=== PATIENT | female | born 1970 | race Caucasian/White ===

== ENCOUNTER 2018-06-11 20:48 | Emergency (ER) | payer OTHER ==
[~2018-06-11] VITALS: Ht 160 cm; Wt 63.5 kg
[~2018-06-11 20:48] MED LIST: ALBUTEROL17 G1 IH; ANUSOL-HC25 MG RC; ANUSOL-HC30 G2 RC; BUSPAR PO; CARAFATE1 G PO; CATAFLAM50 MG PO; CIPRO500 MG PO; MEDROLPACK PO; NASONEX17 GM NS; NEURONTIN300 MG PO; PANADOL EXTRA500 MG; PEPCID40 MG PO; PROSOM PO; PULMICORT1 MG/2 ML; SINGULAIR10 MG PO; SYMBICORT 16010.2 GM IH; SYNTHROID; SYNTHROID75 MCG PO; TUSSIONEX PENNKI5 ML PO; VALISONE15 GM TP; ZANTAC300 MG PO; ZITHROMAX500 MG PO; ZYNCOF 20-400120 ML PO
[2018-06-11] MEDS ORDERED: CYMBALTA20 MG (21:16)
[2018-06-11] MEDS ORDERED: LYRICA50 MG (21:17)
== END 2018-06-11 22:27 | disposition home or self-care (01) ==
LOC: ER 20:48
DX: S61.432A Puncture wound without foreign body of left hand, initial encounter (principal); W60.XXXA Contact with nonvenomous plant thorns and spines and sharp leaves, initial encounter; Y93.89 Activity, other specified; Y92.89 Other specified places as the place of occurrence of the external cause; Y99.8 Other external cause status

== ENCOUNTER 2018-06-20 16:27 | Emergency (ER) | payer OTHER ==
[~2018-06-20] VITALS: Ht 162.6 cm; Wt 61.2 kg
[~2018-06-20 16:27] MED LIST changes: +CYMBALTA20 MG; +LYRICA50 MG
[2018-06-20] MEDS ORDERED: [UNRECOGNIZED DRUG - OTHER] (16:48)
[2018-06-20] MEDS ORDERED: OSEL75CA PO (20:34)
== END 2018-06-20 22:01 | disposition home or self-care (01) ==
LOC: ER 16:27
DX: J09.X2 Influenza due to identified novel influenza A virus with other respiratory manifestations (principal); B34.9 Viral infection, unspecified

== ENCOUNTER 2020-03-07 14:14 | Outpatient (CLI) | payer OTHER ==
[~2020-03-07 14:14] MED LIST changes: +OSEL75CA PO; +[UNRECOGNIZED DRUG - OTHER]
== END 2020-03-07 15:24 | disposition home or self-care (01) ==
LOC: RAD 14:14 → TOM 14:14 → RAD 15:24
PROVIDERS: ATTEND Otolaryngology Otology & Neurotology
DX: J01.80 Other acute sinusitis (principal); E04.2 Nontoxic multinodular goiter

== ENCOUNTER 2021-09-30 09:57 | Outpatient (CLI) | payer OTHER | END 2021-09-30 10:07 | disposition home or self-care (01) | LOC: SONOGRAMA 09:57 | PROVIDERS: ATTEND Orthopaedic Surgery | DX: Z12.31 Encounter for screening mammogram for malignant neoplasm of breast (principal); M25.511 Pain in right shoulder; M75.121 Complete rotator cuff tear or rupture of right shoulder, not specified as traumatic; M25.551 Pain in right hip; M25.552 Pain in left hip ==

== ENCOUNTER 2022-11-01 18:56 | Emergency (ER) | payer OTHER ==
[~2022-11-01] VITALS: Ht 162.6 cm; Wt 63.5 kg
[2022-11-01] MEDS ORDERED: SYNTHROID150 MCG PO (19:04)
[2022-11-01] MEDS ORDERED: SYNTHROID175 MCG PO (19:04)
== END 2022-11-01 21:20 | disposition home or self-care (01) ==
LOC: ER 18:56
DX: U07.1 COVID-19 (principal)

== ENCOUNTER 2022-11-30 14:39 | Emergency (ER) | payer OTHER ==
[~2022-11-30] VITALS: Ht 162.6 cm; Wt 63.5 kg
[~2022-11-30 14:39] MED LIST changes: +SYNTHROID150 MCG PO; +SYNTHROID175 MCG PO
[2022-11-30] MEDS ORDERED: LEVSIN/SL0.125 MG SL (19:51)
== END 2022-11-30 20:07 | disposition home or self-care (01) ==
LOC: ER 14:39
DX: R10.9 Unspecified abdominal pain (principal)

== ENCOUNTER 2022-12-24 13:23 | Outpatient (CLI) | payer OTHER ==
[~2022-12-24 13:23] MED LIST changes: +LEVSIN/SL0.125 MG SL
== END 2022-12-24 13:30 | disposition home or self-care (01) ==
LOC: TOM 13:23
PROVIDERS: ATTEND Otolaryngology
DX: J32.3 Chronic sphenoidal sinusitis (principal)

== ENCOUNTER 2022-12-30 08:09 | Outpatient (CLI) | payer OTHER | END 2022-12-30 08:31 | disposition home or self-care (01) | LOC: RAD 08:09 | PROVIDERS: ATTEND Family Medicine Adult Medicine | DX: R94.5 Abnormal results of liver function studies (principal); N20.0 Calculus of kidney ==

== ENCOUNTER → 2023-03-25 | Outpatient (CLI) | payer OTHER | END | disposition home or self-care (01) | LOC: MAMO-SONO 10:53 | PROVIDERS: ATTEND Obstetrics & Gynecology | DX: E04.2 Nontoxic multinodular goiter (principal); N60.11 Diffuse cystic mastopathy of right breast; N60.12 Diffuse cystic mastopathy of left breast; Z12.31 Encounter for screening mammogram for malignant neoplasm of breast ==

== ENCOUNTER 2024-03-22 14:20 | Emergency (ER) | payer OTHER ==
[~2024-03-22] VITALS: Ht 162.6 cm; Wt 71.2 kg
[2024-03-22] MEDS ORDERED: PROTONIX40 MG PO (14:56)
[2024-03-22] MEDS ORDERED: PEPCID40 MG PO (14:56)
[2024-03-22] MEDS ORDERED: ORPHENADRINE CITRATE 30 MG/ML AMPUL IM STA (18:45)
[2024-03-22] MEDS ORDERED: KETOROLAC TROMETHAMINE 60 MG VIAL IM STA (18:45)
[2024-03-22] MEDS ORDERED: DEXAMETHASONE SODIUM PHOSPHATE 4 MG/ML VIAL IM STA (18:46)
[2024-03-22] MEDS ORDERED: ACETAMINOPHEN WITH CODEINE 1 UDTAB TABLET PO STA (18:46)
== END 2024-03-22 17:50 | disposition home or self-care (01) ==
LOC: ER 14:22
DX: G24.3 Spasmodic torticollis (principal); M77.8 Other enthesopathies, not elsewhere classified; F32.89 Other specified depressive episodes; M79.7 Fibromyalgia
CPT/HCPCS: 96372; 99282; J1100; J1885; J2360

== ENCOUNTER 2024-04-06 10:18 | Outpatient (CLI) | payer OTHER ==
[~2024-04-06 10:18] MED LIST changes: +PROTONIX40 MG PO
== END 2024-04-06 10:24 | disposition home or self-care (01) ==
LOC: NUCLEAR 10:18
PROVIDERS: ATTEND Physical Medicine & Rehabilitation
DX: I87.2 Venous insufficiency (chronic) (peripheral) (principal)

== ENCOUNTER → 2024-04-06 10:38 | Outpatient (CLI) | payer OTHER ==
[2024-04-06 11:04] LABS: PH,URINE 5.5 (5.0-8.0); URINE APPEARANCE Clear; URINE BILIRRUBIN Negative (NEGATIVE); URINE BLOOD Negative; URINE COLOR Yellow; URINE GLUCOSE Negative (NEGATIVE); URINE KETONE Negative (NEGATIVE); URINE LEUKOCYTE Negative; URINE NITRATE Negative; URINE PROTEIN Negative (NEGATIVE); URINE UROBILINOGEN 0.2 E.U./dl
[2024-04-06 11:08] LABS: URINE BACTERIA 70.5 uL (0.0-1933); URINE EPITHELIAL CELLS 13.1 uL (0.0-38.8); URINE RBC 4.7 uL (0.0-20.8); URINE WBC 2.7 uL (0.0-23.2)
[2024-04-06 11:11] LABS: HEMATOCRIT 37.4 % (36.0-45.00); MEAN CELL VOLUME 82.3 fL (80.00-100.00); MEAN CORPUSCULAR HEMOGLOBIN 26.4 pg (27.00-32.0); MEAN CORPUSCULAR HGB CONC 32.1 g/dl (32.0-36.0); PLATELET COUNT 245 K/uL (150-450); RED BLOOD COUNT 4.54 M/uL (4.00-6.00); RED CELL DISTRIBUTION WIDTH 16.7 % (11.5-14.5)
[2024-04-06 12:28] LABS: ALBUMIN 3.7 gm/dL (3.4-5.0); BILIRUBIN TOTAL 0.33 mg/dL (0.3-1.2); CALCIUM 9.2 mg/dL (8.5-10.1); CHOL HDL RATIO 5.1 (0-5.0); CREATININE SERUM 0.92 mg/dL (0.55-1.02); GFR 64.1; GLOBULINA 3.4 G/DL (2.4-3.5); TOTAL PROTEIN 7.1 gm/dL (6.4-8.2)
[2024-04-06 12:31] LABS: TSH 4.72 uIU/mL (0.358-3.74)
[2024-04-06 15:24] LABS: VITAMIN D3 25 HYDROXY 21.84 ng/ml (30-120)
== END | disposition home or self-care (01) ==
LOC: LAB 10:38
PROVIDERS: ATTEND Physical Medicine & Rehabilitation
DX: D51.0 Vitamin B12 deficiency anemia due to intrinsic factor deficiency (principal); Z13.1 Encounter for screening for diabetes mellitus; E03.8 Other specified hypothyroidism; E03.2 Hypothyroidism due to medicaments and other exogenous substances; E78.9 Disorder of lipoprotein metabolism, unspecified; N39.0 Urinary tract infection, site not specified; E55.9 Vitamin D deficiency, unspecified; D51.9 Vitamin B12 deficiency anemia, unspecified

== ENCOUNTER 2024-04-06 12:44 | Outpatient (CLI) | payer OTHER | END 2024-04-06 12:49 | disposition home or self-care (01) | LOC: RAD 12:44 | PROVIDERS: ATTEND Physical Medicine & Rehabilitation | DX: M54.17 Radiculopathy, lumbosacral region (principal); M54.12 Radiculopathy, cervical region ==

== ENCOUNTER 2024-07-04 16:48 | Emergency (ER) | payer OTHER ==
[~2024-07-04] VITALS: Ht 162.6 cm; Wt 73.5 kg
[2024-07-04] MEDS ORDERED: IPRATROPIUM/ALBUTEROL SULFATE 3 ML AMPUL.NEB IH SCH (21:00)
[2024-07-04 21:23] LABS: HEMATOCRIT 37.9 % (36.0-45.00); HEMOGLOBIN 12.2 g/dL (12.0-15.00); MEAN CELL VOLUME 82.2 fL (80.00-100.00); MEAN CORPUSCULAR HEMOGLOBIN 26.4 pg (27.00-32.0); MEAN CORPUSCULAR HGB CONC 32.1 g/dl (32.0-36.0); PLATELET COUNT 300 K/uL (150-450); RED BLOOD COUNT 4.61 M/uL (4.00-6.00); RED CELL DISTRIBUTION WIDTH 15.5 % (11.5-14.5)
[2024-07-04] MEDS ORDERED: IPRATROPIUM/ALBUTEROL SULFATE 3 ML AMPUL.NEB IH ONE (21:24)
[2024-07-04] MEDS ORDERED: GUAIFEN/DEXTROMETHORPHAN/PE 10 ML BLIST.PACK PO ONE ×2 (22:30→22:38)
[2024-07-05] MEDS ORDERED: GILTUSS COUGH-118 M1 PO (00:36)
[2024-07-05] MEDS ORDERED: ACETAMINOPHEN500 M1 PO (00:36)
[2024-07-05] MEDS ORDERED: ZITHROMAX TRI-500 MG PO (00:36)
== END 2024-07-05 01:14 | disposition home or self-care (01) ==
LOC: ER 16:51
PROVIDERS: Preventive Medicine Public Health & General Preventive Medicine
DX: J06.9 Acute upper respiratory infection, unspecified (principal); J45.909 Unspecified asthma, uncomplicated; E03.8 Other specified hypothyroidism; M79.7 Fibromyalgia; Z20.822 Contact with and (suspected) exposure to COVID-19

== ENCOUNTER 2025-03-26 08:24 | Outpatient (CLI) | payer OTHER ==
[~2025-03-26 08:24] MED LIST changes: +ACETAMINOPHEN500 M1 PO; +GILTUSS COUGH-118 M1 PO; +ZITHROMAX TRI-500 MG PO
== END 2025-03-26 08:41 | disposition home or self-care (01) ==
LOC: MAMO-SONO 08:24
DX: E04.2 Nontoxic multinodular goiter (principal); Z12.31 Encounter for screening mammogram for malignant neoplasm of breast; M25.551 Pain in right hip; M25.552 Pain in left hip; R10.10 Upper abdominal pain, unspecified; R10.20 Pelvic and perineal pain unspecified side

== ENCOUNTER 2025-05-27 19:42 | Emergency (ER) | payer OTHER ==
[~2025-05-27] VITALS: Ht 162.6 cm; Wt 73.5 kg
[2025-05-27] MEDS ORDERED: KETOROLAC TROMETHAMINE 30 MG VIAL IM STA (21:01)
[2025-05-27] MEDS ORDERED: DEXAMETHASONE SODIUM PHOSPHATE 4 MG/ML VIAL IM STA (21:02)
[2025-05-27] MEDS ORDERED: ORPHENADRINE CITRATE 30 MG/ML AMPUL IM STA (21:02)
[2025-05-27] MEDS ORDERED: METAXALONE640 MG PO (22:22)
[2025-05-27] MEDS ORDERED: MEDROLPACK PO (22:22)
[2025-05-27] MEDS ORDERED: DICLOFENAC POTA50 MG PO (22:22)
== END 2025-05-27 22:57 | disposition home or self-care (01) ==
LOC: ER 19:43
DX: M54.2 Cervicalgia (principal); M54.59 Other low back pain; E03.8 Other specified hypothyroidism
CPT/HCPCS: 72040; 72100; 96372; 99283; J1100; J1885; J2360